=== PATIENT | male | born 1965 | race Caucasian/White ===

== ENCOUNTER → 2024-06-28 08:24 | Outpatient (REF) | payer OTHER, SELFPAY | LOC: RAD 08:24 | PROVIDERS: ATTENDING PHYSICIAN Physician Assistant Medical | DX: M54.32 Sciatica, left side (principal) | CPT/HCPCS: 72110 ==

== ENCOUNTER → 2024-07-16 08:41 | Outpatient (REF) | payer OTHER, SELFPAY | LOC: MRI 3T 08:41 | PROVIDERS: ATTENDING PHYSICIAN Physician Assistant Medical | DX: M54.16 Radiculopathy, lumbar region (principal); M43.16 Spondylolisthesis, lumbar region; M48.061 Spinal stenosis, lumbar region without neurogenic claudication | CPT/HCPCS: 72148 ==